=== PATIENT | female | born 1980 | race African-American/Black ===

== ENCOUNTER 2017-03-16 22:16 | Emergency (ER) | payer OTHER ==
[2017-03-16 22:27] VITALS: BP 137/80; PULSE 95; TEMP 98.6; BMI 28.8
--- NOTE | 2017-03-17 00:28 | PDOC ---
History of Present Illness - General Chief Complaint: Non EmpBld/Body Flud Exposure Stated Complaint: FOREIGN OBJECT, EXPOSURE Time Seen by Provider: 03/16/17 23:45 History Source: Patient Exam Limitations: No Limitations - History of Present Illness Initial Comments: 03/17/17 00:23 36yo Female patient presents to ED c/o body fluids to left eye. 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 Patient states that her patient is MRSA+. She denies any other complaints at this time. Patient stated she flushed her eye out with cold warm immediately after incident occurred. Past History - Travel Traveled outside of the country in the last 30 days: No Close contact w/someone who was outside of country & ill: No - Past Medical History Allergies/Adverse Reactions: Allergies Allergy/AdvReac Type Severity Reaction Status Date / Time No Known Allergies Allergy Verified 03/16/17 22:23 Home Medications: Ambulatory Orders Cephalexin Monohydrate [Keflex -] 500 mg PO BID #20 capsule 03/17/17 Other medical history: denies - Immunization History Immunization Up to Date: Yes - Psycho/Social/Smoking Cessation Hx Suicidal Ideation: No Smoking History: Never smoked Information on smoking cessation initiated: No Hx Alcohol Use: No Drug/Substance Use Hx: No Review of Systems - Review of Systems Able to Perform ROS?: Yes Is the patient limited [place] proficient: No Constitutional: No: Chills, Fever HEENTM: No: Eye Pain, Blurred Vision, Recent change in vision, Double Vision All Other Systems: Reviewed and Negative *Physical Exam - Vital Signs Last Vital Signs Temp Pulse Resp BP Pulse Ox 98.6 F 95 H 18 137/80 100 03/16/17 22:24 03/16/17 22:24 03/16/17 22:24 03/16/17 22:24 03/16/17 22:24 - Physical Exam General Appearance: Yes: Nourished, Appropriately Dressed. No: Apparent Distress, Mild Distress, Moderate Distress, Severe Distress HEENT: positive: EOMI, DL, Normal ENT Inspection, Normal Voice, Symmetrical, TMs Normal, Pharynx Normal. negative: TM Bulging, TM Dull, TM Erythema Neck: positive: Trachea midline, Normal Thyroid, Supple. negative: Decreased range of motion, Stridor, Lymphadenopathy (R), Lymphadenopathy (L) Respiratory/Chest: positive: Lungs Clear, Normal Breath Sounds. negative: Chest Tender, Respiratory Distress, Accessory Muscle Use, Labored Respiration, Rapid RR Cardiovascular: positive: Regular Rhythm, Regular Rate Extremity: positive: Normal Capillary Refill, Normal Inspection, Normal Range of Motion. negative: Pedal Edema, Swelling, Calf Tenderness, Erythema Integumentary: positive: Normal Color, Dry, Warm Neurologic: positive: test designer II-XII NML intact, Fully Oriented, Alert, Normal Mood/ Affect, Normal Response, Motor Strength 5/5 *DC/Admit/Observation/Transfer Diagnosis at time of Disposition: Patient exposure to body fluids - Discharge Dispostion Disposition: HOME Condition at time of disposition: Stable Admit: No - Prescriptions Prescriptions: Cephalexin Monohydrate [Keflex -] 500 mg PO BID #20 capsule - Referrals Referrals: Avery Tan [Staff Physician] - - Patient Instructions Printed Discharge Instructions: How to Handle Body Fluid Exposure -- Healthcare Worker, DI for Accidental Exposure to Body Fluids Additional Instructions: You may follow up with Dr. Tan (Ophthalmology) if symptoms worsen or any concerns regarding your eye. Call to schedule appointment. Take medications as prescribed. Return if any concerns. Print Language: MALAWIAN - Post Discharge Activity Work/School Note: Back to Work
== END 2017-03-17 00:44 | disposition home or self-care (01) ==
LOC: JER 22:16
CPT/HCPCS: 99281-25